=== PATIENT | female | born 1950 | race Two or more races ===

== ENCOUNTER 2018-01-24 13:36 | Outpatient (CLI) | payer OTHER | END 2018-01-24 13:47 | disposition home or self-care (01) | LOC: RAD 501 13:36 | DX: M17.12 Unilateral primary osteoarthritis, left knee (principal) ==

== ENCOUNTER 2018-02-10 12:49 | Outpatient (CLI) | payer OTHER | END 2018-02-10 12:59 | disposition home or self-care (01) | LOC: MRI 12:49 | DX: S83.242A Other tear of medial meniscus, current injury, left knee, initial encounter (principal) | CPT/HCPCS: 73721 ==

== ENCOUNTER → 2018-03-13 | Outpatient (CLI) | payer OTHER | END | disposition home or self-care (01) | LOC: RAD 12:40 | DX: R07.89 Other chest pain (principal); Z01.818 Encounter for other preprocedural examination ==

== ENCOUNTER 2018-09-11 12:19 | Outpatient (CLI) | payer OTHER | END 2018-09-11 17:00 | disposition home or self-care (01) | LOC: RAD 12:19 | DX: M25.561 Pain in right knee (principal); M25.562 Pain in left knee ==